=== PATIENT | female | born 1960 | race Caucasian/White ===

== ENCOUNTER 2022-03-09 17:10 | Observation (INO) | payer OTHER ==
[2022-03-09 18:23] LABS: CARBON DIOXIDE,CO2 25.2 mmol/L (21.0-32.0); POTASSIUM,K 3.4 mmol/L (3.5-5.1)
[2022-03-09] MEDS ORDERED: Ondansetron 4 MG Tab PO PRN (18:43)
[2022-03-09] MEDS ORDERED: Albuterol/Ipratropium 3.0-0.5 MG/3 ML Neb Soln NEB PRN (18:43)
[2022-03-09] MEDS ORDERED: Acetaminophen 500 MG Tab PO PRN (18:43)
[2022-03-09] MEDS: ALPRAZolam 0.5 MG Tab PO SCH (23:42)
[2022-03-09] MEDS: Lisinopril/Hydrochlorothiazide 10-12.5 MG Tab PO SCH (23:42)
[2022-03-10 06:05] LABS: CARBON DIOXIDE,CO2 26.1 mmol/L (21.0-32.0); POTASSIUM,K 3.4 mmol/L (3.5-5.1)
[2022-03-10] MEDS ORDERED: Levothyroxine 88 MCG Tab PO SCH (06:30)
[2022-03-10] MEDS: Potassium Chloride 20 MEQ Tab.ER PO SCH ×2 (07:16→09:58)
[2022-03-10] MEDS: Lisinopril/Hydrochlorothiazide 10-12.5 MG Tab PO SCH (08:37)
[2022-03-10] MEDS: ALPRAZolam 0.5 MG Tab PO SCH (08:39)
[2022-03-10] MEDS ORDERED: Citalopram 20 MG Tab PO SCH (09:00)
[2022-03-10] MEDS ORDERED: amLODIPine 5 MG Tab PO SCH (09:00)
[2022-03-10] MEDS ORDERED: Magnesium Sulfate/Water 2 GM in Premix Bag 1 BAG IV ONE (09:05)
== END 2022-03-10 14:20 | disposition home or self-care (01) ==
LOC: MW.ED 17:10 → MW.MS 17:42 → UNDOADMOB 18:17 → MW.MS 19:44
PROVIDERS: ADMIT Student in an Organized Health Care Education/Training Program; ATTEND Student in an Organized Health Care Education/Training Program
DX: I10 Essential (primary) hypertension (principal); E03.9 Hypothyroidism, unspecified; E78.5 Hyperlipidemia, unspecified; D64.9 Anemia, unspecified; F41.9 Anxiety disorder, unspecified; F32.A Depression, unspecified; K21.9 Gastro-esophageal reflux disease without esophagitis; R41.82 Altered mental status, unspecified; Z20.822 Contact with and (suspected) exposure to COVID-19; Z88.0 Allergy status to penicillin; Z91.018 Allergy to other foods; Z88.8 Allergy status to other drugs, medicaments and biological substances; Z79.890 Hormone replacement therapy; Z79.02 Long term (current) use of antithrombotics/antiplatelets; Z79.899 Other long term (current) drug therapy
CPT/HCPCS: 36415; 80048; 80053; 83735; 85025; 96374; 99285; A9270-GY; G0378; J3475; U0002